=== PATIENT | male | born 1960 | race Caucasian/White ===

== ENCOUNTER 2025-04-07 09:36 | Day surgery (SDC) | payer MEDICARE, SELFPAY ==
--- NOTE | 2025-04-05 11:14 | EKG_ITS ---
[facility] Test Date: 2025-04-05 Pat Name: BABAR MCCALL Department: Room: - Gender: Male [employer]ing Sales Manager: CAYETANO : 1960 Requested By: Gordon Loco Order Number: [id number] Reading MD: Gordon Loco Measurements Intervals Harrod Rate: 79 P: 51 OK: 152 QRS: -4 QRSD: 85 T: 53 QT: 370 QTc: 425 Interpretive Statements SINUS RHYTHM No previous ECG available for comparison /store/S0/[id number]
[2025-04-05 12:41] VITALS: BMI 30.2
[2025-04-05 12:54] LABS: Basophils # (Auto) 0.1 Thou/mm3 (0.0-0.2); Basophils % (Auto) 1 % (0-2.5); Eosinophils # (Auto) 0.1 Thou/mm3 (0.0-0.5); Eosinophils % (Auto) 1 % (0-10); Hematocrit 51.5 % (41.0-53.0); Hemoglobin 18.4 g/dL (13.5-16.0); Immature Granulocytes Auto 0.03 Thou/mm3 (0.00-0.00); Lymphocytes # (Auto) 1.4 Thou/mm3 (1.0-4.8); Lymphocytes % (Auto) 14 % (10-50); Mean Corpuscular HGB Conc 35.7 g/dl (31.0-37.0); Mean Corpuscular Hemoglobin 32.9 pg (25.0-35.0); Mean Corpuscular Volume 92 fL (80-100); Monocytes # (Auto) 0.8 Thou/mm3 (0.0-0.8); Monocytes % (Auto) 8 % (0-12); Neutrophils # (Auto) 7.9 Thou/mm3 (1.8-7.7); Neutrophils % (Auto) 77 % (37-80); Nucleated Red Blood Cell # 0.00 Thou/mm3 (0.00-0.00); Nucleated Red Blood Cell % 0 /100 WBC (0); Platelet Count 225 Thou/mm3 (140-440); RDW Standard Deviation 41.3 fL (35.1-43.9); Red Blood Count 5.60 Miln/mm3 (4.50-5.90); White Blood Count 10.3 Thou/mm3 (3.8-10.6)
[2025-04-05 13:01] LABS: INR 1.1 (0.9-1.3); Partial Thromboplastin Time 26.7 Seconds (22.0-36.0); Prothrombin Time 11.6 Seconds (9.0-12.2)
[2025-04-05 13:15] LABS: Anion Gap 13 (7-16); BUN/Creatinine Ratio 9 Ratio (12-20); Blood Urea Nitrogen 9 mg/dL (9-23); Calcium 9.7 mg/dL (8.3-10.6); Carbon Dioxide 26.1 mMol/L (20.0-31.0); Chloride 98 mMol/L (98-107); Creatinine (Component) 1.0 mg/dL (0.6-1.3); Estimated Creatinine Clearance 93.2 mL/min (>60); Glucose 121 mg/dL (74-106); Osmolality,Calculated 273 (275-295); Potassium 3.8 mMol/L (3.4-5.1); Sodium 137 mMol/L (136-145); eGFR > 60 See Note
[2025-04-07] VITALS (17 sets, daily range): BP systolic 102–157; BP diastolic 64–90; PULSE 80–110; RESP 13–19; TEMP 37.1–37.4; O2SAT 92–98; BMI 30.4
--- NOTE | 2025-04-07 15:45 | PC.NURSE ---
patients heart rate started to go up to the 100-115[address] Loco to let him know of patients elevated heart rate and DR told me to let patient know that when he gets home to take his PO metoprolol. continue to monitor while in cathlab, patient looks stable
[2025-04-07] MEDS: METOPROLOL SUCCINATE XL 25 MG TABCR 50 MG PO (16:49)
[2025-04-07] MEDS: ACETAMINOPHEN 325 MG TABLET 650 MG PO (16:49)
--- NOTE | 2025-04-07 16:52 | PC.NURSE ---
patient is complaining of being hot, Temporal Temperature was taken and read 99.4f and still tachy, called MD Loco to ask if i can just give him his home dose of 5omg po metoprolol, he said that was fine and as to the low grade fever he said to give two, three hundred and twenty five of tylenol. i will continue to monitor and call DR if anything other changes occur. Right groin still looks good, no swelling, bleeding or signs of hematoma, pulses on right dorsalis pedis are still normal
--- NOTE | 2025-04-07 17:38 | ESOP_ITS ---
RE: BABAR MCCALL : 1960 DATE OF OPERATION: 04/07/2025 REFERRING PHYSICIAN: Dl Ray MD PROCEDURE PERFORMED: 1. Right heart catheterization. 2. Left heart catheterization. 3. LV angiography. 4. Aortic root angiography. 5. Selective left and right coronary angiography. 6. Selective right femoral arterial angiography. 7. Conscious sedation monitoring. INDICATIONS FOR PROCEDURE: The patient with history of chronic hypertension, history of aortic stenosis with recent cardiac echo Doppler study showing significant aortic stenosis and the patient having symptoms of exertional fatigue and exertional dyspnea. DETAILS OF THE PROCEDURE: After explaining the procedure in detail to the patient and after obtaining appropriate consent, the patient was given 1 mg of intravenous Versed and 50 mcg of intravenous fentanyl as premedication. The right groin area was prepped with antiseptic solution. Local anesthetic 2% lidocaine was used and right femoral vein was punctured by Seldinger technique and a Hemoclip sheath size 7-Libyan was put in the right femoral vein. The right femoral artery was also punctured with Seldinger technique and a Hemoclip sheath size 6-Libyan was put in the right femoral artery. Through the venous sheath, a Littlefield-Vinay catheter size 7 was advanced and right atrial pressure was recorded. Catheter was advanced further into the right ventricle and right ventricular pressure was recorded. Catheter was advanced further into the pulmonary arterial position and pulmonary arterial pressure was recorded. Pulmonary capillary wedge mean pressure was recorded. Cardiac output was performed using thermodilution technique. After the cardiac output, the pullback pressure was recorded from wedge position to pulmonary arterial to right ventricular to right atrial position. After the pullback pressure, the pigtail catheter was advanced through the arterial sheath and positioned in the ascending aorta. Aortic pressure was recorded and catheter was tried to be pushed across the aortic valve into the left ventricle with the help of a J-wire though difficulty was noted. The guidewire at that time was pulled out and aortic root angiography was performed in BAHRAINI view using 30 mL of dye at a rate of 15 mL per second over a period of 2 seconds. After the aortic root angiography, the catheter was exchanged with preformed left coronary Sulaiman catheter size 6-Libyan JL4, which was advanced with the help of a J-wire and tip positioned over the left coronary ostium. Several views of the left coronary artery were taken and after the left coronary angiography, the catheter was exchanged with preformed right coronary Sulaiman catheter size 6-Libyan JR4, which was advanced with the help of a J-wire and tip positioned over the right coronary ostium. Three views of the right coronary artery were taken and after the right coronary angiography, the catheter was exchanged with multipurpose B1 6- Libyan catheter, which was advanced with the help of Terumo angled guidewire and the guidewire was tried to be pushed across the aortic valve into the left ventricle. Some difficulty was noted, though after several tries, the guidewire was able to be advanced. The multipurpose catheter was advanced over the guidewire and the left ventricular pressure was recorded. The multipurpose catheter was exchanged with pigtail catheter size 6-Libyan with the help of exchange wire and the left ventricular angiography was performed in DILLON view using 30 mL of dye at a rate of 10 mL per second over a period of 3 seconds. After the left ventricular angiography, the pullback pressures were recorded from left ventricle into the aorta. The pigtail catheter was pulled out and right femoral arterial angiography was performed in DILL[place] as well as in BAHRAINI views as arterial puncture site was close to the bifurcation of the right common femoral artery. Local pressure was applied to attain hemostasis of the right femoral arterial as well as venous puncture site. The patient tolerated the procedure very well without any complications. RESULTS OF PROCEDURE: The hemodynamic data showed right atrial mean pressure is 7 mm. The right ventricular pressure is 36/6 mm. The pulmonary arterial pressure is 32/3 mm with a mean of 16 mm. The pulmonary capillary wedge mean pressure is 13 mm. The left ventricular pressure is 167/15 mm and post-angiography, left ventricular pressure is 158/21 mm. The aortic pressure is 127/70 mm with a mean of 92 mm. There is noted to be [id number] gradient of 20 mm across the aortic valve and a mean gradient across the aortic valve of 18.17 mm. The cardiac output obtained is 5.57 liters per minute with a cardiac index of 2.39 liters per minute per meter square body surface area. The calculated aortic valve area is 1.59 cm2. Left ventricular angiography showed normal-sized left ventricle with concentric left ventricular hypertrophy and normal left ventricular systolic function with ejection fraction of 70%. No evidence of segmental left ventricular wall motion abnormalities are noted. No evidence of mitral regurgitation is noted. Aortic root angiography showed calcific aortic valve leaflets with decreased excursion and no evidence of aortic regurgitation is noted. The coronary angiography showed left main coronary artery is normal. The left anterior descending coronary artery is normal. The diagonal and septal branches are normal. The circumflex coronary artery is normal. The right coronary angiography showed dominant right coronary artery, which is free of any luminal narrowing. Right femoral arterial angiography is normal and arterial puncture site is close to the bifurcation of the right common femoral artery. FINAL IMPRESSION: 1. Moderate calcific aortic stenosis with calculated aortic valve area of 1.59 cm2. 2. Normal coronary angiography. 3. Concentric left ventricular hypertrophy with normal left ventricular systolic function. 4. Normal right femoral arterial angiography. RECOMMENDATIONS: The patient recommended continuation of medical management for the control of the symptoms. DT: 16:27:00 TT: 17:35:00 Ref: [id number] - TID: [id number]
== END 2025-04-07 18:30 | disposition home or self-care (01) ==
PROVIDERS: Referring Provider Internal Medicine Cardiovascular Disease; Visit Provider Internal Medicine Cardiovascular Disease
PROC: (CPT 93460; principal; 2025-04-07 11:00)
DX: I35.0 Nonrheumatic aortic (valve) stenosis (principal); I20.9 Angina pectoris, unspecified; I49.9 Cardiac arrhythmia, unspecified; E78.2 Mixed hyperlipidemia; I11.9 Hypertensive heart disease without heart failure; Z01.810 Encounter for preprocedural cardiovascular examination; Z79.899 Other long term (current) drug therapy
CPT/HCPCS: 93460; 93567; 36415; 80048; 85025; 85610; 85730; 93005; 99152; 99153; A4649; C1769; C1894; J0168; J0461; J1643; J2250; J2312; J2371; J3010; J3490; Q9967; A9270; J2305